=== PATIENT | female | born 1950 | race Caucasian/White ===

== ENCOUNTER 2020-01-08 10:27 | Outpatient (CLI) | payer BC, MEDICARE ==
--- NOTE | 2020-01-08 12:30 | PET ---
Exam: PET scan with CT attenuation correction HISTORY: Breast cancer. Possible right calvarial lesion noted on outside skull radiographs and brain MRI COMPARISON: None Correlation: Brain MRI 12/12/2019 at [facility] TECHNIQUE: PET scan with CT attenuation correction is performed from the vertex to the proximal thigh s following the intravenous administration of 12.1 mm of [id number] FINDINGS: Head and neck: CT used for attenuation correction demonstrates a lucent focus in the right parietal calvarium, corre sponding to the finding on recent MRI. There is no FDG avidity. There is no abnormal FDG avidity in the soft tissues of the neck. CHEST: No abnormal FDG localization Abdomen pelvis: No abnormal FDG localization Osseous structures: No abnormal FDG localization IMPRESSION: 1. Nonhypermetabolic lucent focus in the right calvarium. Lesion is in the diploic space and a benign process is favored. 2. No abnormal FDG localization in the neck, chest, abdomen or pelvis. 3. No evidence of increased FDG avidity involving the visualized osseous structures.
== END 2020-01-08 10:28 | disposition home or self-care (01) ==
LOC: PET 10:27
PROVIDERS: ATTEND Neurological Surgery
DX: M89.9 Disorder of bone, unspecified (principal); R94.8 Abnormal results of function studies of other organs and systems
CPT/HCPCS: 78815; A9552